=== PATIENT | male | born 1975 | race Caucasian/White ===

== ENCOUNTER 2017-01-08 19:40 | Emergency (ER) | payer BC ==
[2017-01-08 19:47] VITALS: O2SAT 96
--- NOTE | 2017-01-08 19:58 | ERPHSYRPT ---
- History of Present Illness Time Seen by Provider: 01/08/17 19:53 Source: patient, family Exam Limitations: no limitations Physician History: pt has no known trauma but developed left knee pain and swelling with redness last 2 days getting worse , and also now some feeling light headed and weak like the flu, some nasal congestion; has had drainage left great toe after trimming too close; ligaments intact ; red , left knee with effusion mainly prepatellar no skin lesion except for toe; Method of Injury: unknown Occurred: days ago Quality: constant, sharpness, throbbing Severity of Pain-Max: moderate Severity of Pain-Current: moderate Lower Extremities Pain: knee: left, 1st toe: left Modifying Factors: Improves With: cold therapy, immobilization, movement Associated Symptoms: dizzy Allergies/Adverse Reactions: UNOBTAINABLE Allergy (Unverified 01/08/17 20:00) pt unsure what med he is allergric to. states it was approx 10 yrs ago and thinks it is an antibiotic Home Medications: Smz/Tmp Ds Tablet [Bactrim Ds Tablet] 2 udtab PO BID 01/08/17 [History] - Review of Systems Constitutional: Malaise, Weakness, No Fever, No Chills Eyes: No Symptoms Ears, Nose, & Throat: No Symptoms Respiratory: No Cough, No Dyspnea Cardiac: No Chest Pain, No Edema, No Syncope Abdominal/Gastrointestinal: No Abdominal Pain, No Nausea, No Vomiting, No Diarrhea Genitourinary Symptoms: No Dysuria Musculoskeletal: Arthralgias, Joint Redness, Joint Pain, No Back Pain, No Neck Pain, No Injury Skin: No Rash Neurological: No Dizziness, No Focal Weakness, No Sensory Changes Psychological: No Symptoms Endocrine: No Symptoms All Other Systems: Reviewed and Negative - Past Medical History Pertinent Past Medical History: No - Nursing Vital Signs Nursing Vital Signs: Initial Vital Signs Temperature 97.8 F Temperature Source Oral Pulse Rate 99 Respiratory Rate 16 Blood Pressure [] 117/69 Pain Intensity 8 - Physical Exam General Appearance: no apparent distress, alert Eyes, Ears, Nose, Throat Exam: pharynx normal, moist mucous membranes, No pharyngeal erythema Neck Exam: non-tender, supple, No meningismus, No lymphadenopathy (R), No lymphadenopathy (L) Cardiovascular/Respiratory Exam: chest non-tender, normal breath sounds, regular rate/rhythm, no respiratory distress Gastrointestinal/Abdominal Exam: non-tender, soft Back Exam: normal inspection, No vertebral tenderness, No rash Hips Exam: bilateral: non-tender, normal inspection, normal range of motion, no evidence of injury Legs Exam: bilateral leg: non-tender, normal inspection, normal range of motion , no evidence of injury Knees Exam: right knee: non-tender, normal inspection, normal range of motion, left knee: ecchymosis, joint effusion, pain, soft tissue tenderness, swelling, bilateral knee: no evidence of injury Ankle Exam: bilateral ankle: non-tender, normal inspection, normal range of motion, no evidence of injury Foot Exam: right foot: non-tender, normal inspection, normal range of motion, no evidence of injury, left foot: abrasions/lacerations, nail injury DTR - Lower Extremities Exam: knee (R): 2+, knee (L): 2+, ankle (R): 2+, ankle ( L): 2+ Neuro/Tendon Exam: normal sensation, normal motor functions, normal tendon functions Mental Status Exam: alert, oriented x 3, cooperative Skin Exam: normal color, warm, dry SpO2 Interpretation: normal SpO2: 96 Oxygen Delivery: Room Air - Course Nursing assessment & vital signs reviewed: Yes - Radiology Exams Left Knee X-ray Interpretation: Reviewed by me, Other (peripatellar effusion and STS) Ordered Tests: Active Orders 24 hr Category Date Time Status Field Spec STAT Care 01/08/17 20:00 Active Clean Catch Urine Specimen STAT Care 01/08/17 19:59 Active IV Insertion STAT Care 01/08/17 19:59 Active IV Insertion STAT Care 01/08/17 19:59 Active Pulse Oximetry (ED) STAT Care 01/08/17 20:00 Active Saline Lock STAT Care 01/08/17 20:00 Active KNEE (3 VIEWS) Stat Exams 01/08/17 20:01 Taken BLOOD CULTURE Stat Lab 01/08/17 20:21 Received CBC W DIFF Stat Lab 01/08/17 20:21 Completed CMP Stat Lab 01/08/17 20:21 Completed CULTURE,URINE Stat Lab 01/08/17 20:00 Ordered Lactic Acid Stat Lab 01/08/17 20:17 Completed PROTIME WITH INR Stat Lab 01/08/17 20:21 Completed PTT Stat Lab 01/08/17 20:21 Completed SED RATE [Erythrocyte Sedimentation Rate] Stat Lab 01/08/17 20:21 Completed UA Stat Lab 01/08/17 20:00 Ordered Uric Acid Stat Lab 01/08/17 20:21 Completed Medication Summary Discontinued Medications Generic Name Dose Route Start Last Admin Trade Name Juan PRN Reason Stop Dose Admin Diphtheria/Tetanus/Acell Pertussis 0.5 ml 01/08/17 19:59 01/08/17 20:25 Adacel Vial IM 01/08/17 20:00 0.5 ml .ONCE ONE Administration Diphtheria/Tetanus/Acell Pertussis Confirm 01/08/17 20:19 Adacel Vial Administered 01/08/17 20:20 Dose 0.5 ml IM .STK-MED ONE Sodium Chloride 1,000 mls @ 999 mls/hr 01/08/17 19:59 01/08/17 20:24 Sodium Chloride 0.9% 1000 Ml IV 01/08/17 20:59 999 mls/hr .Q1H1M STA Administration Ceftriaxone Sodium/Dextrose 1 g in 50 mls @ 100 mls/hr 01/08/17 20:03 20:24 Rocephin 1 Gm-D5w 50 Ml Bag IV 01/08/17 20:32 100 mls/hr STAT STA Administration Sodium Chloride Confirm 01/08/17 20:19 Sodium Chloride 0.9% 1000 Ml Administered 01/08/17 20:20 Dose 1,000 mls @ ud .ROUTE .STK-MED ONE Ceftriaxone Sodium/Dextrose Confirm 01/08/17 20:19 Rocephin 1 Gm-D5w 50 Ml Bag Administered 01/08/17 20:20 Dose 1 g in 50 mls @ ud IV .STK-MED ONE Lab/Rad Data: Laboratory Result Diagrams 01/08/17 20:21 01/08/17 20:21 Laboratory Results 01/08/17 01/08/17 01/08/17 Range/Units 20:21 20:21 20:21 WBC (4.0-10.5) K/mm3 RBC (4.1-5.6) M/mm3 Hgb (12.5-18.0) gm/dl Hct (42-50) % MCV (78-100) fl MCH (26-32) pg MCHC (32-36) g/dl RDW (11.5-14.0) % Plt Count (150-450) K/mm3 MPV (6-9.5) fl Gran % (36.0-66.0) % Lymphocytes % (24.0-44.0) % Monocytes % (0.0-12.0) % Eosinophils % (0.00-5.0) % Basophils % (0.0-0.4) % Basophils # (0-0.4) ESR 11 (0-15) mm/hr INR 1.22 (0.8-3.0) APTT 29.2 (24.1-36.1) SECONDS Sodium (136-145) mEq/L Potassium (3.5-5.1) mEq/L Chloride (98-107) mEq/L Carbon Dioxide (21-32) mEq/L Anion Gap (5-15) MEQ/L BUN (9-20) mg/dL Creatinine (0.55-1.30) mg/dl Estimated GFR ML/MIN Glucose (70-110) MG/DL Lactic Acid (0.4-2.0) Uric Acid 4.9 (3.5-7.2) mg/dL Calcium (8.5-10.1) mg/dL Total Bilirubin (0.2-1.0) mg/dL AST (15-37) U/L ALT (12-78) U/L Alkaline Phosphatase (46-116) U/L Serum Total Protein (6.4-8.2) gm/dL Albumin (3.4-5.0) g/dL 01/08/17 01/08/17 01/08/17 Range/Units 20:21 20:21 20:17 WBC 10.7 H (4.0-10.5) K/mm3 RBC 4.98 (4.1-5.6) M/mm3 Hgb 15.1 (12.5-18.0) gm/dl Hct 44.5 (42-50) % MCV 89.4 (78-100) fl MCH 30.3 (26-32) pg MCHC 33.9 (32-36) g/dl RDW 12.0 (11.5-14.0) % Plt Count 204 (150-450) K/mm3 MPV 11.2 H (6-9.5) fl Gran % 81.6 H (36.0-66.0) % Lymphocytes % 8.6 L (24.0-44.0) % Monocytes % 8.9 (0.0-12.0) % Eosinophils % 0.7 (0.00-5.0) % Basophils % 0.2 (0.0-0.4) % Basophils # 0.02 (0-0.4) ESR (0-15) mm/hr INR (0.8-3.0) APTT (24.1-36.1) SECONDS Sodium 138 (136-145) mEq/L Potassium 3.7 (3.5-5.1) mEq/L Chloride 100 (98-107) mEq/L Carbon Dioxide 25.5 (21-32) mEq/L Anion Gap 16.6 H (5-15) MEQ/L BUN 14 (9-20) mg/dL Creatinine 1.56 H (0.55-1.30) mg/dl Estimated GFR 53 ML/MIN Glucose 122 H (70-110) MG/DL Lactic Acid 1.1 (0.4-2.0) Uric Acid (3.5-7.2) mg/dL Calcium 8.9 (8.5-10.1) mg/dL Total Bilirubin 0.90 (0.2-1.0) mg/dL AST 16 (15-37) U/L ALT 16 (12-78) U/L Alkaline Phosphatase 55 (46-116) U/L Serum Total Protein 8.0 (6.4-8.2) gm/dL Albumin 4.0 (3.4-5.0) g/dL - Progress Progress: improved, re-examined Progress Note: 01/08/17 21:13 discussed findings with pt and family and that infection likely and although osteomelytis not detected , ther still could be developing serious joint infection, and requires f/u with PCP continuing ab and further eval to determine etilogy and source; and discussed limitations of testing performed and pt/family choose DC to f/u PCP rather than admit or return outpt here with continued parenteral AB; they agree to return meantime if any further concerns. also declines taping of joint at this time after discussion of risk/benefit and prefers to see if response from tx; Pt does not meet sepsis criteria, normal HR and no further symptoms in ER , no fever, normal lactate; pt advised to f/u elevated RFT with PCP; 01/08/17 21:18 Counseled pt/family regarding: lab results, diagnosis, need for follow-up, rad results - Departure Time of Disposition: 21:17 Departure Disposition: Home Clinical Impression: Cellulitis of left knee Condition: Good Critical Care Time: No Instructions: Cellulitis -- Adult, Knee Effusion, Knee Pain, Osteomyelitis Additional Instructions: Although we did not detect osteomyelitis in the joint , there still could be a more serious infection beyond cellulitis , which requires further followup and possible further testing to exclude; or the joint to still progress to a more serious infection. therefore FYI we are giving you the fact sheet for that condition. See your Dr as planned , a blood culture is pending here. Return meantime if increased pain , increased redness , fever , dizziness or swelling or other concerns. Followup also with your Dr to retest kidney function. Prescriptions: Amoxicillin/Potassium Clav [Augmentin 875 mg (Amox Tr-K Clv 875-125 mg)] 1 each PO BID #20 tablet Mupirocin [Bactroban OINTMENT] 22 gm TP BID #1 tube
[2017-01-08] MEDS ORDERED: Adacel Vial IM ONE ×2 (19:59→20:19)
[2017-01-08] MEDS ORDERED: Sodium Chloride 0.9% 1000 ML 1,000 ML IV STA (19:59)
[2017-01-08] MEDS ORDERED: ROCEPHIN 1 Gm-D5w 50 ml Bag** 1 G/50 ML IVPB IV STA (20:03)
[2017-01-08] MEDS ORDERED: Sodium Chloride 0.9% 1000 ML 1,000 ML ONE (20:19)
[2017-01-08] MEDS ORDERED: ROCEPHIN 1 Gm-D5w 50 ml Bag** 1 G/50 ML IVPB IV ONE (20:19)
[2017-01-08 20:27] LABS: BASOPHIL % 0.2 % (0.0-0.4); Eosinophil % 0.7 % (0.00-5.0); Granulocytes % 81.6 % (36.0-66.0); Lymphocytes % 8.6 % (24.0-44.0); Mean Cell Volume 89.4 fl (78-100); Mean Corpuscular Hemoglobin 30.3 pg (26-32); Mean Platelet Volume 11.2 fl (6-9.5); Monocytes % 8.9 % (0.0-12.0); Platelet Count 204 K/mm3 (150-450); Red Blood Count 4.98 M/mm3 (4.1-5.6); White Blood Count 10.7 K/mm3 (4.0-10.5)
[2017-01-08 20:42] LABS: ANION GAP 16.6 MEQ/L (5-15); BILIRUBIN,TOTAL 0.9 mg/dL (0.2-1.0); Carbon Dioxide 25.5 mEq/L (21-32); INR 1.22 (0.8-3.0); PROTIME 13.8 SECONDS (8.83-12.87); Potassium 3.7 mEq/L (3.5-5.1)
[2017-01-08 20:44] LABS: PTT 29.2 SECONDS (24.1-36.1)
[2017-01-08 21:49] VITALS: BP 112/68; PULSE 72
--- NOTE | 2017-01-09 08:33 | XRAY ---
Indication: Anterior swelling. No known injury. Comparison: None 3 views of the right knee demonstrates anterior subcutaneous soft tissue swelling. No other bony, articular, or soft tissue abnormalities.
== END 2017-01-08 21:49 | disposition home or self-care (01) ==
LOC: ED 19:40
DX: L03.116 Cellulitis of left lower limb (principal)
CPT/HCPCS: 36000; 36415; 73562; 80053; 83605; 84550; 85025; 85610; 85652; 85730; 87040; 90471; 90715; 93041; 96360; 96365; 99284; J0696

== ENCOUNTER 2017-01-09 15:39 | Emergency (ER) | payer BC ==
[2017-01-09] MEDS ORDERED: MOTRIN 600 MG PO ONE (17:03)
[2017-01-09] MEDS ORDERED: Rocephin 1000 MG INJ IM ONE (17:04)
--- NOTE | 2017-01-09 17:10 | ERPHSYRPT ---
- History of Present Illness Time Seen by Provider: 01/09/17 16:50 Source: patient, family Patient Subjective Stated Complaint: PT STATES HE WAS SEEN IN ER LAST PM AND TREATED FOR "KNEE INFECTION." PT STATES HE WAS INSTRUCTED TO RETURN TO ER TODAY IF HE COULD NOT GET INTO [facility] PT CURRENTLY TAKING BACTRIM ANTIBIOTIC THAT THE [facility] GAVE HIM ON 01/07/17. PT STATES THE SWELLING IS BETTER TODAY JUST NEEDS HIS KNEE CHECKED. Triage Nursing Assessment: PT PINK, WARM, DRY. SWELLING NOTED TO LEFT KNEE. PEDAL PULSES STRONG IN BOTH LEGS. DENIES ANY INJURY. Physician History: CC: left knee redness hx: 41 /o patient of Dr Dewayne Peñaloza. He has redness anterior to the left knee. He has no fever, chills, trauma. Eval last night showed normal labs including ESR and urin acid. Neg xray. He was given tetanus vaccine and rocephin shot. He has bactrim already thru urgent care. He has Rx for augmentin but has not yet filled it. He thinks the pain and swelling is better since last night. Allergies/Adverse Reactions: UNOBTAINABLE Allergy (Unverified 01/09/17 16:36) pt unsure what med he is allergric to. states it was approx 10 yrs ago and thinks it is an antibiotic Home Medications: Smz/Tmp Ds Tablet [Bactrim Ds Tablet] 2 udtab PO BID 01/08/17 [History] Hx Tetanus, Diphtheria Vaccination/Date Given: Yes (UP TO DATE) Hx Influenza Vaccination/Date Given: No Hx Pneumococcal Vaccination/Date Given: No Immunizations Up to Date: Yes - Review of Systems Constitutional: No Fever, No Chills Musculoskeletal: Joint Pain (left knee) Neurological: No Focal Weakness, No Parasthesia - Past Medical History Pertinent Past Medical History: No - Past Surgical History Past Surgical History: No - Social History Smoking Status: Never smoker Exposure to second hand smoke: No Drug Use: none Patient Lives Alone: No - Nursing Vital Signs Nursing Vital Signs: Initial Vital Signs Temperature 98.4 F Temperature Source Oral Pulse Rate 78 Respiratory Rate 18 Blood Pressure [Right Arm] 131/72 Pain Intensity 1 - Physical Exam General Appearance: alert, other (no inguinal LAD. Left knee prepatellar has redness and swelling and warmth. The knee joint line is not tender. No knee effusion. This is anterior process. ROm intact.) Eyes, Ears, Nose, Throat Exam: moist mucous membranes Neck Exam: normal inspection, non-tender, supple Cardiovascular/Respiratory Exam: normal breath sounds, regular rate/rhythm, heart sounds normal Gastrointestinal/Abdominal Exam: non-tender, soft Neuro/Tendon Exam: normal sensation, normal motor functions Mental Status Exam: alert, oriented x 3, cooperative Skin Exam: warm, dry SpO2 Interpretation: normal SpO2: 98 Oxygen Delivery: Room Air - Course Nursing assessment & vital signs reviewed: Yes Ordered Tests: Medication Summary Generic Name Dose Route Start Last Admin Trade Name Freq PRN Reason Stop Dose Admin Ceftriaxone Sodium 1,000 mg 01/09/17 17:04 Rocephin 1000 Mg Inj IM 01/09/17 17:05 STAT ONE Ibuprofen 600 mg 01/09/17 17:03 Motrin 600 Mg PO 01/09/17 17:04 STAT ONE - Progress Progress Note: 01/09/17 17:08 He has prepatellal cellulitis/bursitis. Will repeat rocphin. Add NSAID. Continue bactrim and he will fill augmentin. Advised follow up with Dr aBljit Welch. Counseled pt/family regarding: diagnosis, need for follow-up - Departure Time of Disposition: 17:09 Departure Disposition: Home Clinical Impression: prepatella cellulitis Condition: Stable Critical Care Time: No Referrals: SHYAM PEÑALOZA [Primary Care Provider] - Instructions: Cellulitis -- Adult Additional Instructions: Continue bactrim. Get augmentin and fill tonite to start tonite. Rx ibuprofen. Rest. Return for fever or worsening. Follow up with Dr Peñaloza or [facility]. Prescriptions: Ibuprofen 600 mg PO Q6H PRN PRN #24 tablet PRN Reason: Pain
[2017-01-09] MEDS ORDERED: MOTRIN 600 MG ONE (17:48)
[2017-01-09] MEDS ORDERED: Rocephin 1000 MG INJ ONE (17:48)
[2017-01-09] MEDS ORDERED: XYLOCAINE 1% HCL 20 ML MDV ONE (17:49)
[2017-01-09 18:18] VITALS: BP 116/69; PULSE 74; O2SAT 99
== END 2017-01-09 18:16 | disposition home or self-care (01) ==
LOC: ED 15:39
DX: L03.116 Cellulitis of left lower limb (principal)
CPT/HCPCS: 96372; 99284; J0696; A9270-GY